=== PATIENT | female | born 1985 | race Caucasian/White ===

== ENCOUNTER 2022-11-02 07:41 | Day surgery (SDC) | payer BC ==
[~2022-11-02] VITALS: Ht 152.4 cm; Wt 73.9 kg
[2022-11-02] VITALS (10 sets, daily range): BP systolic 110–132; BP diastolic 65–84; PULSE 65–75; RESP 12–17; TEMP 98.3; O2SAT 98–100
[~2022-11-02 07:41] MED LIST: LIDOcaine 1% W/epiNEPHrine 1:100,000 20ml vial ONE; LORA10CA PO; MAGNESIUM; METF-900 PO; OMEGA; SERT-433 PO; [UNRECOGNIZED DRUG - OTHER]; bacitracin 15gm ointment TP ONE; cocaine 4% topical solution 4ml bottle ONE; epiNEPHrine 1 mg/ml 30ml MDV ONE; famotidine 20mg tablet PO ONE; mupirocin 2% ointment 22GM ONE; oxymetazoline 15 ML nasal spray NS ONE; ringers solution, lacted 1,000 ML IV SCH; tranexamic acid 100mg/ml inj. ONE; tranexamic acid inj. 1,000 MG in normal saline IV soln 100ML IV ONE
[2022-11-02] MEDS ORDERED: CETI-90 PO (08:29)
[2022-11-02] MEDS ORDERED: sevoflurane 250ml liquid IH ONE (10:13)
[2022-11-02] MEDS ORDERED: fentaNYL/PF 50MCG/1 ML 2ML syringe ONE (10:23)
[2022-11-02] MEDS ORDERED: LIDOcaine 2% (20mg/ml) 5ml vial ONE (10:35)
[2022-11-02] MEDS ORDERED: midazolam 1 mg/ML 2ml injection ONE (10:35)
[2022-11-02] MEDS ORDERED: propofol inj 20 ML IV ONE ×2 (10:35→10:36)
[2022-11-02] MEDS ORDERED: ondansetron/PF 4mg/2ml inj ONE (10:36)
[2022-11-02] MEDS ORDERED: dexamethasone sod phosphate 4mg/ml inj. ONE (10:36)
--- NOTE | 2022-11-02 11:35 | NUR ---
Received from OR via [facility] TO [facility], accompanied by Anesthesiologist DR HANSON and report given by Anesthesiolgist. PT PRESENTS WITH PIV 20G RIGHT HAND, SPO2 100% 6L MASK, LR RUNNIN GAT 100MLS/HR, NASAL PACKING CDI, VSS. DR BRITO IN ROOM TALKING WITH PT. Addendum: 11/02/22 at 1146 by Lolis Culp RN, RN Amended: Links added.
[2022-11-02] MEDS ORDERED: salt irrigation nasal spray 45 ML SPRAY NS PRN (12:00)
[2022-11-02] MEDS ORDERED: HYDROcodone/acetaminophen 5mg/325mg tablet PO ONE (12:10)
[2022-11-02] MEDS ORDERED: mupirocin 2% ointment 22GM TP STA (12:24)
--- NOTE | 2022-11-02 12:50 | NUR ---
ABLE TO SAFELY AMBULATE AND TRANSFER SELF. IV TAKEN OUT WITHOUT ANY COMPLICATIONS. ALL DISCHARGE INSTRUCTIONS COVERED WITH PATIENT AND ALL QUESTIONS ANSWERED. PATIENT TAKEN OUT VIA WHEELCHAIR TO PERSONAL VEHICLE WHERE FAMILY/FRIEND DROVE PATIENT HOME. Addendum: 11/02/22 at 1251 by Lolis Culp RN, RN Amended: Links added.
[2022-11-02] MEDS ORDERED: ringers solution, lacted 1,000 ML IV SCH (14:35)
[2022-11-02] MEDS ORDERED: mupirocin 2% nasal ointment 1gm UD NS SCH (20:00)
== END 2022-11-02 12:45 | disposition home or self-care (01) ==
LOC: PAS 07:41
PROVIDERS: ATTEND Otolaryngology
DX: J32.8 Other chronic sinusitis (principal); J33.8 Other polyp of sinus; J34.3 Hypertrophy of nasal turbinates; R73.03 Prediabetes; E28.2 Polycystic ovarian syndrome; Z88.1 Allergy status to other antibiotic agents; Z91.041 Radiographic dye allergy status; Z98.890 Other specified postprocedural states; Z79.84 Long term (current) use of oral hypoglycemic drugs; Z79.899 Other long term (current) drug therapy
CPT/HCPCS: 31259; 31267; 61782; 82948; A6402; J0171; J1100; J2250; J2405; J2704; J3010; J3490; J7030; J7050; J7120; Z7506; Z7508; Z7512; A4618; A6449; A7000